=== PATIENT | female | born 1975 | race Caucasian/White ===

== ENCOUNTER 2020-08-21 00:17 | Observation (INO) | payer SELFPAY ==
[2020-08-21] MEDS ORDERED: Acetaminophen 325 MG TAB PO PRN (03:50)
[2020-08-21] MEDS ORDERED: Senokot S 8.6-50 MG TAB PO PRN (03:50)
[2020-08-21 04:22] VITALS: BMI 39.3
[2020-08-21] MEDS: Sodium Chloride 0.9% 1,000 ML IV SCH ×3 (05:08→23:44)
[2020-08-21 08:20] LABS: Bacteria/HPF 1+ HPF (None Seen); Bilirubin Negative (Negative); Blood, Urine 2+ (Negative); Clarity Clear (Clear); Glucose, Urine (Dipstick) Normal (Negative); Ketone, Urine Negative (Negative); Leukocyte Negative Leu/uL (Negative); Nitrite Negative (Negative); Pregnancy Test - Urine (BHCG) Negative (Negative); Pregu Control Background? CLEAR/WHITE (CLR/WHITE); Pregu Control Bar Appear? YES (CONTROL BAR); Protein, Urine (Dipstick) Negative (Neg-Trace); RBC/HPF 0-3 HPF (0-3); Specific Gravity 1.008 (1.002-1.036); Specific Gravity, Urine 1.008 (1.002-1.036); Squamous Epithelial 0-3 HPF (0-3); Urobilinogen Normal mg/dL (Less than 2); WBC/HPF 0-3 HPF (0-3); pH, Urine 6.5 (5.0-9.0)
[2020-08-21 08:21] LABS: Urine Culture Reflex Yes Yes
[2020-08-21 10:31] LABS: #Eosinphils 0.1 thou/uL (0.0-0.7); #Lymphocytes 1.3 thou/uL (1.20-3.40); #Monocytes 0.4 thou/uL (0.11-0.59); #Neutrophils 3.2 thou/uL (1.40-6.50); %Basophils 0.7 % (0.0-1.0); %Eosinophils 2.4 % (0.0-10.0); %Lymphocytes 25.1 % (21.0-51.0); %Monocytes 8.1 % (0.0-10.0); %Neutrophils 63.6 % (42.0-75.0); Hemoglobin 13.3 g/dL (12.0-16.0); Mean Corpuscular HGB CONC 33.5 g/dL (32.0-36.0); Mean Corpuscular Hemoglobin 29.5 pg (27.0-31.0); Mean Corpuscular Volume 88.1 fL (78.0-98.0); Platelet Count 151 thou/uL (130-400); RBC Distribution Width 12.1 % (11.5-14.5); Red Blood Cell (RBC) Count 4.49 mill/uL (4.20-5.40); White Blood Cell (WBC) Count 5.1 thou/uL (4.8-10.8)
[2020-08-21 10:52] LABS: Anion Gap 12 mmol/L (10-20); BUN (Urea Nitrogen) 12 mg/dL (7.0-18.7); Calc. Creatinine Clearance 175 mL/min (70-130); Calcium 8.6 mg/dL (7.8-10.44); Carbon Dioxide 19 mmol/L (22-29); Chloride 110 mmol/L (98-107); Glucose 98 mg/dL (70-105); Potassium 3.8 mmol/L (3.5-5.1); Sodium 137 mmol/L (136-145)
[2020-08-21] MEDS: Famotidine 20 MG TAB PO SCH ×2 (13:06→20:08)
[2020-08-21 17:19] LABS: SARS-CoV-2 PCR by NAA Not Detected (NotDetected)
[2020-08-21] MEDS: Ketorolac Tromethamine 30 MG/ML VIAL IVP PRN ×2 (17:58→23:47)
[2020-08-22] MEDS: Ketorolac Tromethamine 30 MG/ML VIAL IVP PRN ×2 (06:25→19:08)
[2020-08-22 07:28] LABS: #Eosinphils 0.2 thou/uL (0.0-0.7); #Lymphocytes 1.2 thou/uL (1.20-3.40); #Monocytes 0.5 thou/uL (0.11-0.59); #Neutrophils 2.7 thou/uL (1.40-6.50); %Basophils 0.7 % (0.0-1.0); %Eosinophils 3.7 % (0.0-10.0); %Lymphocytes 25.6 % (21.0-51.0); %Monocytes 10.2 % (0.0-10.0); %Neutrophils 59.7 % (42.0-75.0); Hemoglobin 13.2 g/dL (12.0-16.0); Mean Corpuscular HGB CONC 33.3 g/dL (32.0-36.0); Mean Corpuscular Hemoglobin 29.4 pg (27.0-31.0); Mean Corpuscular Volume 88.4 fL (78.0-98.0); Mean Platelet Volume 9.1 fL (7.4-10.4); Platelet Count 151 thou/uL (130-400); Red Blood Cell (RBC) Count 4.48 mill/uL (4.20-5.40); White Blood Cell (WBC) Count 4.6 thou/uL (4.8-10.8)
[2020-08-22 07:53] LABS: Anion Gap 12 mmol/L (10-20); BUN (Urea Nitrogen) 14 mg/dL (7.0-18.7); Calc. Creatinine Clearance 170 mL/min (70-130); Calcium 8.5 mg/dL (7.8-10.44); Carbon Dioxide 19 mmol/L (22-29); Chloride 110 mmol/L (98-107); Glucose 97 mg/dL (70-105); Potassium 4.3 mmol/L (3.5-5.1); Sodium 137 mmol/L (136-145)
[2020-08-22] MEDS: Famotidine 20 MG TAB PO SCH (09:26)
[2020-08-22] MEDS ORDERED: Ketorolac Tromethamine 30 MG/ML VIAL IVP SCH (09:45)
[2020-08-22] MEDS ORDERED: Levofloxacin 500 mg/D5W 100 ml Premix Bag ONE (14:18)
[2020-08-22] MEDS ORDERED: Fentanyl 100 MCG/2 ML VIAL ONE (15:39)
[2020-08-22] MEDS ORDERED: Iothalamate Meglumine 60% 50 ML VIAL FS ONE (15:45)
[2020-08-22] MEDS ORDERED: PROPOFOL 200 MG/20 ML VIAL ONE (15:57)
[2020-08-22] MEDS ORDERED: Ondansetron PF 4 MG/2 ML Vial ONE (15:57)
[2020-08-22] MEDS ORDERED: Dexamethasone 20 MG/5 ML VIAL ONE (15:57)
[2020-08-22] MEDS ORDERED: Succinylcholine 200 MG/10 ml SYRINGE FS ONE (15:57)
[2020-08-22] MEDS ORDERED: Hyoscyamine Sulfate SL 0.125 mg Tablet PO PRN (17:59)
[2020-08-22 18:10] VITALS: BP 152/82; TEMP 98
[2020-08-22] MEDS: Sodium Chloride 0.9% 1,000 ML IV SCH (18:46)
[2020-08-23] MEDS ORDERED: Tamsulosin HCl 0.4 MG CAP PO SCH (09:00)
[2020-08-29 20:09] LABS: CA Oxalate Dihydrate 30 % (.); CA Oxalate Monohydrate 65 % (.); Color Brown (.); Stone Weight 28 mg (.)
== END 2020-08-22 19:25 | disposition home or self-care (01) ==
LOC: ONC 00:17
PROVIDERS: ADMIT Student in an Organized Health Care Education/Training Program; ATTEND Hospitalist
PROC: 0TC78ZZ Extirpation of Matter from Left Ureter, Via Natural or Artificial Opening Endoscopic (ICD-10-PCS; principal; 2020-08-22)
PROC: 0T778DZ Dilation of Left Ureter with Intraluminal Device, Via Natural or Artificial Opening Endoscopic (ICD-10-PCS; 2020-08-22)
DX: N13.2 Hydronephrosis with renal and ureteral calculous obstruction (principal); E66.9 Obesity, unspecified; Z68.39 Body mass index [BMI] 39.0-39.9, adult; Z20.822 Contact with and (suspected) exposure to COVID-19
CPT/HCPCS: 36415; 74018; 74420; 80048; 81001; 81025; 82365; 85025; 87086; 87635; 88300; G0378; J1100; J1885; J1956; J2405; J2704; J3010; Q9961; U0003; U0005

== ENCOUNTER 2020-08-26 19:39 | Emergency (ER) | payer SELFPAY ==
[2020-08-26 20:23] LABS: #Eosinphils 0.2 thou/uL (0.0-0.7); #Lymphocytes 1.5 thou/uL (1.20-3.40); #Monocytes 0.6 thou/uL (0.11-0.59); #Neutrophils 4.1 thou/uL (1.40-6.50); %Basophils 0.6 % (0.0-1.0); %Eosinophils 2.8 % (0.0-10.0); %Lymphocytes 23.7 % (21.0-51.0); %Monocytes 9.8 % (0.0-10.0); %Neutrophils 63.1 % (42.0-75.0); Hemoglobin 13.8 g/dL (12.0-16.0); Mean Corpuscular Hemoglobin 29.4 pg (27.0-31.0); Mean Platelet Volume 8.8 fL (7.4-10.4); Platelet Count 162 thou/uL (130-400); Red Blood Cell (RBC) Count 4.69 mill/uL (4.20-5.40); White Blood Cell (WBC) Count 6.5 thou/uL (4.8-10.8)
[2020-08-26 20:48] LABS: ALT (SGPT) 16 U/L (8-55); AST (SGOT) 13 U/L (5-34); Albumin 3.8 g/dL (3.5-5.0); Alkaline Phosphatase 75 U/L (40-110); Anion Gap 14 mmol/L (10-20); BUN (Urea Nitrogen) 19 mg/dL (7.0-18.7); Bilirubin, Total 0.3 mg/dL (0.2-1.2); Calc. Creatinine Clearance 0 mL/min (70-130); Calcium 8.8 mg/dL (7.8-10.44); Carbon Dioxide 23 mmol/L (22-29); Chloride 104 mmol/L (98-107); Globulin 2.8 g/dL (2.4-3.5); Glucose 105 mg/dL (70-105); Potassium 4.3 mmol/L (3.5-5.1); Protein, Total 6.6 g/dL (6.0-8.3); Sodium 137 mmol/L (136-145)
== END 2020-08-26 21:29 | disposition home or self-care (01) ==
LOC: ERS 19:39
DX: N20.0 Calculus of kidney (principal)
CPT/HCPCS: 36415; 74176; 80053; 85025

== ENCOUNTER 2020-09-23 22:32 | Emergency (ER) | payer MEDICARE, SELFPAY | END 2020-09-24 01:45 | disposition home or self-care (01) | LOC: ERS 22:32 | DX: S93.402A Sprain of unspecified ligament of left ankle, initial encounter (principal); X50.1XXA Overexertion from prolonged static or awkward postures, initial encounter ==